=== PATIENT | female | born 1985 | race Hispanic/Latino ===

== ENCOUNTER → 2017-09-17 | Outpatient (CLI) | payer OTHER ==
--- NOTE | 2017-09-17 11:57 | REP ---
BILATERAL DIAGNOSTIC MAMMOGRAM: 09/17/2017 (NO CHARGE) CLINICAL HISTORY: "Strong family history, nipple discharge." The exam was cancelled. Per discussion with the patient, the mother had breast cancer at age 56. She has a positive BRCA2 gene. The patient does not have BRCA testing. She had episodes of bilateral nipple discharge, none currently. She had some skin changes on the areola which have resolved. There are no palpable abnormalities. She has no current breast pain. I spoke to the ordering physician assistant laboratory director, Poli Raines, by phone, about all of this and then I spoke to the patient and confirmed historical and physical symptoms. The absence of any current symptom and her age should preclude her from mammography. I discussed this at length with her and her physician's assistant laboratory director. Should she have unilateral discharge, bloody discharge, development of a palpable lesion, skin changes that do not resolve, etc. then mammography can be contemplated. Otherwise, she should have screening mammogram at age 42. Signed by Mata Elder MD 09/17/2017 08:34 P
== END ==
LOC: M RAD 10:18
PROVIDERS: ATTEND Physician Assistant Medical
DX: Z12.31 Encounter for screening mammogram for malignant neoplasm of breast (principal)